=== PATIENT | female | born 1995 | race Caucasian/White ===

== ENCOUNTER 2018-07-27 12:05 | Emergency (ER) | payer OTHER ==
[2018-07-27] MEDS ORDERED: NS(*) 0.9% 1000 ML BAG 1,000 ML IV ONE (12:36)
--- NOTE | 2018-07-27 12:36 | ER Report ---
History and Physical Time Seen By MD: 12:31 Hx. of Stated Complaint: PASSED OUT WHILE OBSERVING A BIOPSY IN RADIOLOGY. LACERATION TO THE CHIN AND TEETH OUT OF PLACE ON THE BOTTOM JAW HPI/ROS CHIEF COMPLAINT: Syncope HISTORY OF PRESENT ILLNESS: This is a 23-year-old female presents to the emergency department for syncope. Patient was observing a procedure in ultrasound, had a mask on, became hot and had a syncopal episode where she fell down face 1st hitting the ground. She came to immediately after, has jaw pain, l aceration to the mandible, unable to fully open or close her jaw, the lower front teeth appear to be pushed backwards. Denies C-spine pain. She did have nausea, no vomiting. No chest pain or shortness of breath. She is very anxious, hyperventilating and tearful. No recent fevers or chills. No loss of bowel or bladder. No seizure activity. REVIEW OF SYSTEMS: Constitutional: No fever, no chills. Eyes: No discharge. ENT: As above. Cardiovascular: No chest pain, no palpitations. Respiratory: No cough, no shortness of breath. Gastrointestinal: No abdominal pain, no vomiting. Genitourinary: No hematuria. Musculoskeletal: As above. Skin: No rashes. Neurological: As above. Allergies: Coded Allergies: No Known Drug Allergies (Unverified , 07/27/18) Home Meds Active Scripts Amoxicillin/Pot Clav 875-125 Mg Tab (AUGMENTIN 875-125 TABLET) 1 Each Tablet, 1 TAB PO Q12H for 7 Days, #14 TAB Prov:SAM LOVEP-BC 07/27/18 Ondansetron Hcl (ZOFRAN) 4 Mg Tablet, 4 MG PO Q4-6H PRN for prn, #20 TAB Prov:SAM LOVE PAI GOW MANAGER-BC 07/27/18 Hydrocodone Bit/Acetaminophen (HYDROCODON-ACETAMINOPHEN 5-325) 1 Each Tablet, 1 EACH PO Q4-6H PRN for PAIN, #12 TAB Prov:SAM LOVE PAI GOW MANAGER-BC 07/27/18 Past Medical/Surgical History The patient has a past medical and surgical history of depression, anorexia. Reviewed Nurses Notes: Yes Hx Substance Use Disorder: No Constitutional Vital Sign - Last 24 Hours 2/11/07/27/18 07/27/18 07/27/18 12:05 12:07 12:08 12:10 Temp 97.5 Pulse 59 80 Resp 97 B/P (MAP) 112/77 (89) 112/77 112/77 (89) Pulse Ox 98 95 O2 Delivery Room Air 07/27/18 07/27/18 07/27/18 07/27/18 12:20 12:30 12:51 12:54 B/P (MAP) 130/101 (111) 116/74 (88) 113/75 (88) O2 Flow Rate 2.0 07/27/18 07/27/18 07/27/18 07/27/18 13:00 13:20 13:30 13:35 Pulse 71 B/P (MAP) 114/72 (86) 119/85 (96) 104/75 (85) Pulse Ox 99 07/27/18 07/27/18 07/27/18 07/27/18 13:40 13:50 14:00 14:10 Pulse 83 B/P (MAP) 103/65 (78) 104/73 (83) 94/62 (73) 98/64 (75) Pulse Ox 99 07/27/18 07/27/18 07/27/18 07/27/18 14:20 14:30 14:40 14:50 Pulse 75 72 B/P (MAP) 97/63 (74) 97/60 (72) 97/61 (73) 97/60 (72) Pulse Ox 94 100 07/27/18 07/27/18 07/27/18 07/27/18 15:00 15:10 15:20 15:30 Pulse 84 97 B/P (MAP) 102/62 (75) 114/76 (89) 117/70 (86) 105/68 (80) Pulse Ox 93 100 07/27/18 07/27/18 07/27/18 07/27/18 15:40 15:50 16:00 16:10 Pulse 90 79 B/P (MAP) 87/74 (78) 104/59 (74) 101/56 (71) 102/59 (73) Pulse Ox 100 100 07/27/18 16:20 Pulse 84 B/P (MAP) 104/59 (74) Pulse Ox 99 Physical Exam General Appearance: The patient is alert, has no immediate need for airway protection and no signs of toxicity, tearful and anxious. Eyes: Pupils equal and round no pallor or injection. EOMs intact. No nystagmus. ENT, Mouth: Mucous membranes are moist. No hemotympanum. No Diana sign. No raccoon eyes. #22, 23, 24, 25, 26 and heart 27 teeth are together but pushed back pointing towards the upper palate. Gumline intact. Pain to the temporomandibular joints bilaterally, increased pain to the right mandible and the mental protuberance. No crepitus. Respiratory: There are no retractions, lungs are clear to auscultation. Cardiovascular: Regular rate and rhythm, no murmurs, clicks or rubs. Gastrointestinal: Abdomen is soft and non tender, no masses, bowel sounds normal. Neurological: Alert and oriented 4. Moving all extremities. Following all commands. No focal neuro deficits. Skin: Laceration to the underside of the mandible, bleeding controlled. Musculoskeletal: Neck is supple non tender. No C-spine tenderness. No crepitus, no deformities. Extremities are nontender, nonswollen and have full range of motion. DIFFERENTIAL DIAGNOSIS: After history and physical exam differential diagnosis was considered for syncope including but not limited to vasovagal syncope, arrhythmia, dehydration, and blood loss. Medical Decision Making Data Points Result Diagram: 07/27/18 1208 07/27/18 1208 Laboratory Hematology Test 07/27/18 12:08 Red Blood Count 5.04 M/uL (4.17-5.56) Mean Corpuscular Volume 93.7 fL (80.0-96.0) Mean Corpuscular Hemoglobin 31.6 pg (26.0-33.0) Mean Corpuscular Hemoglobin Concent 33.7 g/dL (32.0-36.0) Red Cell Distribution Width 14.2 % (11.5-14.5) Mean Platelet Volume 8.6 fL (7.2-11.1) Neutrophils (%) (Auto) 52.8 % (39.4-72.5) Lymphocytes (%) (Auto) 35.2 % (17.6-49.6) Monocytes (%) (Auto) 9.2 % (4.1-12.4) Eosinophils (%) (Auto) 1.7 % (0.4-6.7) Basophils (%) (Auto) 1.1 % (0.3-1.4) Nucleated RBC Relative Count (auto) 0.1 /100WBC Neutrophils # (Auto) 5.8 K/uL (2.0-7.4) Lymphocytes # (Auto) 3.9 K/uL (1.3-3.6) Monocytes # (Auto) 1.0 K/uL (0.3-1.0) Eosinophils # (Auto) 0.2 K/uL (0.0-0.5) Basophils # (Auto) 0.1 K/uL (0.0-0.1) Nucleated RBC Absolute Count (auto) 0.01 K/uL Sodium Level 137 mmol/L (137-145) Potassium Level 3.7 mmol/L (3.5-5.0) Chloride Level 111 mmol/L (98-107) Carbon Dioxide Level 18 mmol/L (22-31) Blood Urea Nitrogen 15 mg/dl (7-18) Creatinine 1.00 mg/dl (0.52-1.04) Glomerular Filtration Rate Calc > 60.0 Random Glucose 103 mg/dl (75-110) Calcium Level 9.9 mg/dl (8.4-10.2) Total Bilirubin 0.7 mg/dl (0.2-1.3) Aspartate Amino Transf (AST/SGOT) 25 U/L (0-35) Alanine Aminotransferase (ALT/SGPT) 22 U/L (0-56) Alkaline Phosphatase 62 U/L (0-126) Total Protein 7.8 g/dl (6.3-8.2) Albumin 4.9 g/dl (3.5-5.0) Human Chorionic Gonadotropin, Qual Negative (NEGATIVE) Chemistry Test 07/27/18 12:08 White Blood Count 11.0 k/uL (4.5-11.0) Red Blood Count 5.04 M/uL (4.17-5.56) Hemoglobin 15.9 g/dL (12.0-16.0) Hematocrit 47.2 % (34.0-47.0) Mean Corpuscular Volume 93.7 fL (80.0-96.0) Mean Corpuscular Hemoglobin 31.6 pg (26.0-33.0) Mean Corpuscular Hemoglobin Concent 33.7 g/dL (32.0-36.0) Red Cell Distribution Width 14.2 % (11.5-14.5) Platelet Count 380 K/uL (150-450) Mean Platelet Volume 8.6 fL (7.2-11.1) Neutrophils (%) (Auto) 52.8 % (39.4-72.5) Lymphocytes (%) (Auto) 35.2 % (17.6-49.6) Monocytes (%) (Auto) 9.2 % (4.1-12.4) Eosinophils (%) (Auto) 1.7 % (0.4-6.7) Basophils (%) (Auto) 1.1 % (0.3-1.4) Nucleated RBC Relative Count (auto) 0.1 /100WBC Neutrophils # (Auto) 5.8 K/uL (2.0-7.4) Lymphocytes # (Auto) 3.9 K/uL (1.3-3.6) Monocytes # (Auto) 1.0 K/uL (0.3-1.0) Eosinophils # (Auto) 0.2 K/uL (0.0-0.5) Basophils # (Auto) 0.1 K/uL (0.0-0.1) Nucleated RBC Absolute Count (auto) 0.01 K/uL Glomerular Filtration Rate Calc > 60.0 Calcium Level 9.9 mg/dl (8.4-10.2) Total Bilirubin 0.7 mg/dl (0.2-1.3) Aspartate Amino Transf (AST/SGOT) 25 U/L (0-35) Alanine Aminotransferase (ALT/SGPT) 22 U/L (0-56) Alkaline Phosphatase 62 U/L (0-126) Total Protein 7.8 g/dl (6.3-8.2) Albumin 4.9 g/dl (3.5-5.0) Human Chorionic Gonadotropin, Qual Negative (NEGATIVE) EKG/Imaging EKG Interpretation 12 lead EKG: Time of EKG 1603. Rhythm: Normal sinus rhythm, ventricular rate 65 bpm. [place]: normal QRS: normal ST segments: No ST depression or elevation identified. No previous EKGs for comparison. Imaging Location: [facility] [place] Patient: Sunita Purcell : 1995 Visit/Account:[id number] Date of Sevice: 07/27/2018 EXAMINATION: CT HEAD AND MAXILLOFACIAL WITHOUT CONTRAST COMPARISON: None available HISTORY: syncope, had an face injury. Chin laceration. PROCEDURE: Noncontrast multiplanar head CT and maxillofacial CT One of the following dose optimization techniques was utilized in the performa nce of this exam: Automated exposure control; adjustment of the mA and/or kV according to the patient's size; or use of an iterative reconstruction technique. Specific details can be referenced in the facility's radiology CT exam operational policy. FINDINGS: CT head without contrast: Brain volume: Age-appropriate. Hemorrhage/extra-axial fluid: None. Mass effect/midline shift/edema: None. Ischemia: Rivera-white differentiation is preserved. Ventricles and basal cisterns: Within normal limits. Posterior fossa: Negative. Vessels: Negative. Calvarium, skull base, and scalp: Negative. CT maxillofacial without contrast: Mandible, temporomandibular joints, and teeth: Mandibular genu nondisplaced fracture extending into the alveolar ridge between the left first and second incisors. Right condylar process nondisplaced fracture; the articular surface is intact and temporomandibular joint alignment is within normal limits. Additionally, there are nondisplaced crown fractures of the left mandibular second premolar, right mandibular second premolar, left maxillary second premolar, and left maxillary first molar. The fractures do not involve the roots. Orbits and orbital contents: No orbit fracture. Globes and orbital contents are symmetric. Paranasal sinuses and mastoid air cells: Right maxillary sinus lateral wall nondisplaced fracture with a small amount of soft tissue gas adjacent to the fracture there is no definite evidence of fracture extension into the maxilla alveolar ridge. No other sinus wall fracture is identified. The paranasal sinuses and mastoid air cells are well aerated. Nasal bones, anterior nasal spine, and nasal septum: Negative. Zygomatic arches and pterygoid plates: Negative. Facial soft tissues: Subcutaneous laceration along the chin. No radiopaque fore ign body. Craniocervical junction: Within normal limits. IMPRESSION: 1. Negative noncontrast head CT. 2. Mandibular genu nondisplaced fracture. 3. Right mandible condylar process mildly comminuted nondisplaced fracture; temporal mandibular joint alignment is within normal limits. OMFS/ENT consul tation is recommended. 4. At least 4 fractured teeth as described above. OMFS/dental consultation is recommended. 5. Right maxillary sinus lateral wall nondisplaced fracture. 6. Chin subcutaneous laceration. Results were discussed with SAM LOVE at 07/27/2018 2:27 PM. Report Dictated By: Ismael Flynn MD at 07/27/2018 2:02 PM Report E-Signed By: Ismael Flynn MD at 07/27/2018 2:28 PM WSN:[id number] Location: [facility] [place] Patient: Sunita Purcell : 1995 Visit/Account:[id number] Date of Sevice: 07/27/2018 CHEST PA LAT INDICATION: Syncope COMPARISON: None available FINDINGS: Frontal and lateral views obtained. The cardiac silhouette is normal in size. No pneumothorax. The lungs are clear. Slight convexity right thoracic scoliosis. No acute osseous abnormality. No pleural fluid. IMPRESSION: 1. No acute finding. 2. Slight convexity right thoracic scoliosis. Report Dictated By: Ivan Vasquez MD at 07/27/2018 2:03 PM Report E-Signed By: Ivan Vasquez MD at 07/27/2018 2:10 PM WSN:[email or web address] ED Course/Re-evaluation Clinical Indication for ER IV: Hydration, IV Access ED Course The patient was admitted to room. A history and physical were obtained. Differential diagnoses were considered. A rapid response was called, the patient did have a vasovagal syncopal episode while watching a procedure, she is a sonographic student. She states that she did completely black out. She did hit the floor with her chin, has a large laceration to the chin. An IV was started. A CBC and CMP were obtained. EKG showing normal sinus rhythm. A 1 L normal saline bolus was given. 4 mg IV Zofran, 4 mg IV morphine were given. Patient had improvement of pain however she did require more medications, additional 4 mg IV morphine were given in addition to that she was given 0.5 mg IV Ativan. CBC unremarkable, chemistry unremarkable, negative hCG. A head and facial bone CT were obtained, negative head CT, she did however have a mandibular genu, N ondisplaced fracture, a right mandible condylar process mildly comminuted nondisplaced fracture, temporal mandibular joint alignment is within normal limits, 4 fractured teeth, right maxillary sinus lateral wall nondisplaced fracture. I reviewed the results with the patient, she was visibly upset, I did however tell her I spoke with the plastics and facial trauma surgeon, Dr. Walden at [facility], the patient was given the choice of following up with [facility] or going back to her hometown in [place] for follow-up, the patient elected to follow-up at [facility] as we already made contact, she will follow up tomorrow morning, with surgery likely slated for Friday. Patient was also given 1 g of Rocephin in the emergency department. Her tetanus was up-to-date. The complex laceration was repaired as noted below. The patient was given Zofran for nausea and vomiting, she was also given a prescription for Augmentin, as she states her mother told her not to take penicillin as her mother has a penicillin allergy. She was also given a prescription for hydrocodone. Instructed to take ibuprofen or Tylenol as needed for pain, the hydrocodone for severe pain. Patient states she feels she is okay to take pills. I did recommend a bland, soft diet. Patient was in agreement with this plan of care, discharged home. Procedure: Laceration repair. Verbal consent was obtained from the patient. The 3.5 cm laceration on the chin was anesthetized in the usual fashion. The wound was thoroughly irrigated with pressure and scrubbed, draped and explored to its base with a gloved finger. The mandible was visualized. No tendon injury was identified. The wound was repaired with 4, 5-0 Vicryl simple interrupted sutures in the subcutaneous tiss ue, 12, 6-0 Prolene simple interrupted sutures. The wound repair was complex. The procedure was performed by myself. Decision to Disposition Date: Jul 27, 2018 Decision to Disposition Time: 16:43 Depart Departure Latest Vital Signs Vital Signs Date Time Temp Pulse Resp B/P (MAP) Pulse Ox O2 Delivery O2 Flow Rate FiO2 07/27/18 16:20 84 104/59 (74) 99 07/27/18 12:54 2.0 07/27/18 12:08 97.5 97 Room Air Impression: Primary Impression: Mandible fracture Additional Impression: Syncopal episodes Condition: Improved Disposition: HOME OR SELF-CARE New Scripts Amoxicillin/Pot Clav 875-125 Mg Tab (AUGMENTIN 875-125 TABLET) 1 Each Tablet 1 TAB PO Q12H for 7 Days, #14 TAB Prov: SAM LOVE [facility] 07/27/18 Ondansetron Hcl (ZOFRAN) 4 Mg Tablet 4 MG PO Q4-6H PRN for prn, #20 TAB Prov: SAM LOVE [facility] 07/27/18 Hydrocodone Bit/Acetaminophen (HYDROCODON-ACETAMINOPHEN 5-325) 1 Each Tablet 1 EACH PO Q4-6H PRN for PAIN, #12 TAB Prov: SAM LOVE [facility] 07/27/18 Patient Instructions: Acute Dental Trauma (ED), Jaw Fracture in Adults (ED), Soft Diet (ED), Syncope (ED) Additional Instructions: Please call Dr. Walden, the surgeon tomorrow morning at [phone] for follow up, his office is in [place]. You will likely have surgery to repair the injuries Friday. Take Ibuprofen as needed for pain. Take Hydrocodone for severe pain. Take the antibiotics as prescribed. Take Zofran as needed for nausea and vomiting. Soft diet only, avoid smoothies with seeds. Get as much rest as possible. Sutures to be removed and or evaluated in 5 days. Monitor closely for signs of infection, swelling, increased drainage, fevers, foul odor. Return to the ED for any other concerns or worsening symptoms. Problem Qualifiers Primary Impression: Mandible fracture Encounter type: initial encounter Fracture type: open Mandible location: other site Qualified Codes: S02.69XB - Fracture of mandible of other specified site, initial encounter for open fracture Additional Impression: Syncopal episodes Syncope type: vasovagal syncope Qualified Codes: R55 - Syncope and collapse SAM LOVE [facility]- Jul 27, 2018 12:36
[2018-07-27] MEDS ORDERED: ONDANSETRON 4 MG/2 ML VIAL IVP ONE ×2 (12:40→13:55)
[2018-07-27] MEDS ORDERED: MORPHINE 4 MG/ML SDV IVP ONE ×2 (12:45→14:05)
[2018-07-27 12:49] LABS: PLATELET COUNT, AUTOMATED 380 K/uL (150-450)
--- NOTE | 2018-07-27 12:58 | EKG ---
FACILITY: [facility] [place] PATIENT NAME: ALLEY FUENTES : [id number] MR: [id number] V: [id number] EXAM DATE: ORDERING PHYSICIAN: SAM LOVE TECHNOLOGIST: OTONIEL Rachel Reason : SYNCOPE Blood Pressure : / mmHG Vent. Rate : 065 BPM Atrial Rate : 065 BPM P-R Int : 134 ms QRS Dur : 090 ms QT Int : 430 ms P-R-T Axes : 047 072 056 degrees QTc Int : 447 ms Normal sinus rhythm Normal ECG No previous ECGs available Confirmed by MARCELLO MORENO ([id number]) on 07/27/2018 10:10:19 PM Referred By: BRUNA Confirmed By:MARCELLO MORENO
[2018-07-27] MEDS ORDERED: cefTRIAXone 1 GM VIAL IVP ONE (13:50)
[2018-07-27] MEDS ORDERED: LORazepam 2 MG/ML VIAL IVP ONE (14:05)
--- NOTE | 2018-07-27 14:16 | RADIOLOGY IMAGING REPORT ---
FACILITY: [facility] [place] PATIENT NAME: Sunita Purcell : 1995 MR: [id number] V: [id number] EXAM DATE: ORDERING PHYSICIAN: SAM LOVE TECHNOLOGIST: Location: Patient: Sunita Purcell : 1995 Visit/Account:[id number] Date of Sevice: 07/27/2018 CHEST PA LAT INDICATION: Syncope COMPARISON: None available FINDINGS: Frontal and lateral views obtained. The cardiac silhouette is normal in size. No pneumo thorax. The lungs are clear. Slight convexity right thoracic scoliosis. No acute osseous abnormali ty. No pleural fluid. IMPRESSION: 1. No acute finding. 2. Slight convexity right thoracic scoliosis. Report Dictated By: Ivan Vasquez MD at 07/27/2018 2:03 PM Report E-Signed By: Ivan Vasquez MD at 07/27/2018 2:10 PM WSN:[email or web address]
--- NOTE | 2018-07-27 14:32 | RADIOLOGY IMAGING REPORT ---
FACILITY: [facility] [place] PATIENT NAME: Sunita Purcell : 1995 MR: [id number] V: [id number] EXAM DATE: ORDERING PHYSICIAN: SAM LOVE TECHNOLOGIST: Location: [facility] Patient: Sunita Purcell : 1995 Visit/Account:[id number] Date of Sevice: 07/27/2018 EXAMINATION: CT HEAD AND MAXILLOFACIAL WITHOUT CONTRAST COMPARISON: None available HISTORY: syncope, had an face injury. Chin laceration. PROCEDURE: Noncontrast multiplanar head CT and maxillofacial CT One of the following dose optimization techniques was utilized in the performance of this exam: Autom ated exposure control; adjustment of the mA and/or kV according to the patient's size; or use of an i terative reconstruction technique. Specific details can be referenced in the facility's radiology C T exam operational policy. FINDINGS: CT head without contrast: Brain volume: Age-appropriate. Hemorrhage/extra-axial fluid: None. Mass effect/midline shift/edema: None. Ischemia: Rivera-white differentiation is preserved. Ventricles and basal cisterns: Within normal limits. Posterior fossa: Negative. Vessels: Negative. Calvarium, skull base, and scalp: Negative. CT maxillofacial without contrast: Mandible, temporomandibular joints, and teeth: Mandibular genu nondisplaced fracture extending into t he alveolar ridge between the left first and second incisors. Right condylar process nondisplaced fra cture; the articular surface is intact and temporomandibular joint alignment is within normal limits. Additionally, there are nondisplaced crown fractures of the left mandibular second premolar, right m andibular second premolar, left maxillary second premolar, and left maxillary first molar. The fractu res do not involve the roots. Orbits and orbital contents: No orbit fracture. Globes and orbital contents are symmetric. Paranasal sinuses and mastoid air cells: Right maxillary sinus lateral wall nondisplaced fracture wit h a small amount of soft tissue gas adjacent to the fracture there is no definite evidence of fractur e extension into the maxilla alveolar ridge. No other sinus wall fracture is identified. The paranasa l sinuses and mastoid air cells are well aerated. Nasal bones, anterior nasal spine, and nasal septum: Negative. Zygomatic arches and pterygoid plates: Negative. Facial soft tissues: Subcutaneous laceration along the chin. No radiopaque foreign body. Craniocervical junction: Within normal limits. IMPRESSION: 1. Negative noncontrast head CT. 2. Mandibular genu nondisplaced fracture. 3. Right mandible condylar process mildly comminuted nondisplaced fracture; temporal mandibular joint alignment is within normal limits. OMFS/ENT consultation is recommended. 4. At least 4 fractured teeth as described above. OMFS/dental consultation is recommended. 5. Right maxillary sinus lateral wall nondisplaced fracture. 6. Chin subcutaneous laceration. Results were discussed with SAM LOVE at 07/27/2018 2:27 PM. Report Dictated By: Ismael Flynn MD at 07/27/2018 2:02 PM Report E-Signed By: Ismael Flynn MD at 07/27/2018 2:28 PM WSN:[id number]
--- NOTE | 2018-07-27 14:32 | RADIOLOGY IMAGING REPORT ---
FACILITY: [facility] [place] PATIENT NAME: Sunita Purcell : 1995 MR: [id number] V: [id number] EXAM DATE: ORDERING PHYSICIAN: SAM LOVE TECHNOLOGIST: Location: [facility] [place] Patient: Sunita Purcell : 1995 Visit/Account:[id number] Date of Sevice: 07/27/2018 EXAMINATION: CT HEAD AND MAXILLOFACIAL WITHOUT CONTRAST COMPARISON: None available HISTORY: syncope, had an face injury. Chin laceration. PROCEDURE: Noncontrast multiplanar head CT and maxillofacial CT One of the following dose optimization techniques was utilized in the performance of this exam: Autom ated exposure control; adjustment of the mA and/or kV according to the patient's size; or use of an i terative reconstruction technique. Specific details can be referenced in the facility's radiology C T exam operational policy. FINDINGS: CT head without contrast: Brain volume: Age-appropriate. Hemorrhage/extra-axial fluid: None. Mass effect/midline shift/edema: None. Ischemia: Rivera-white differentiation is preserved. Ventricles and basal cisterns: Within normal limits. Posterior fossa: Negative. Vessels: Negative. Calvarium, skull base, and scalp: Negative. CT maxillofacial without contrast: Mandible, temporomandibular joints, and teeth: Mandibular genu nondisplaced fracture extending into t he alveolar ridge between the left first and second incisors. Right condylar process nondisplaced fra cture; the articular surface is intact and temporomandibular joint alignment is within normal limits. Additionally, there are nondisplaced crown fractures of the left mandibular second premolar, right m andibular second premolar, left maxillary second premolar, and left maxillary first molar. The fractu res do not involve the roots. Orbits and orbital contents: No orbit fracture. Globes and orbital contents are symmetric. Paranasal sinuses and mastoid air cells: Right maxillary sinus lateral wall nondisplaced fracture wit h a small amount of soft tissue gas adjacent to the fracture there is no definite evidence of fractur e extension into the maxilla alveolar ridge. No other sinus wall fracture is identified. The paranasa l sinuses and mastoid air cells are well aerated. Nasal bones, anterior nasal spine, and nasal septum: Negative. Zygomatic arches and pterygoid plates: Negative. Facial soft tissues: Subcutaneous laceration along the chin. No radiopaque foreign body. Craniocervical junction: Within normal limits. IMPRESSION: 1. Negative noncontrast head CT. 2. Mandibular genu nondisplaced fracture. 3. Right mandible condylar process mildly comminuted nondisplaced fracture; temporal mandibular joint alignment is within normal limits. OMFS/ENT consultation is recommended. 4. At least 4 fractured teeth as described above. OMFS/dental consultation is recommended. 5. Right maxillary sinus lateral wall nondisplaced fracture. 6. Chin subcutaneous laceration. Results were discussed with SAM LOVE at 07/27/2018 2:27 PM. Report Dictated By: Ismael Flynn MD at 07/27/2018 2:02 PM Report E-Signed By: Ismael Flynn MD at 07/27/2018 2:28 PM WSN:[id number]
[2018-07-27 16:20] VITALS: BP 104/59
[2018-07-27] MEDS ORDERED: PENI-24 PO (16:38)
[2018-07-27] MEDS ORDERED: ONDA4TAB97 PO (16:38)
[2018-07-27] MEDS ORDERED: HYDR-385 PO (16:38)
[2018-07-27] MEDS ORDERED: AMOX-559 PO (17:10)
== END 2018-07-27 17:00 | disposition home or self-care (01) ==
LOC: ER 12:19
DX: S02.69XB Fracture of mandible of other specified site, initial encounter for open fracture (principal); S02.5XXA Fracture of tooth (traumatic), initial encounter for closed fracture; S01.81XA Laceration without foreign body of other part of head, initial encounter; W18.39XA Other fall on same level, initial encounter
CPT/HCPCS: 12052; 70450; 70486; 71046; 84703; 85025; 93005; 96361; 96374; 96375; 96376; 99284; J0696; J2060; J2270; J2405; J7030; 82040; 82247; 82310; 82374; 82435; 82565; 82947; 84075; 84132; 84155; 84295; 84450; 84460; 84520